=== PATIENT | male | born 1945 | race Caucasian/White ===

== ENCOUNTER 2019-03-06 06:32 | Day surgery (SDC) | payer MEDICARE, OTHER ==
[2019-03-06] MEDS ORDERED: ACETAZOLAMIDE 250 MG PO ONE (06:41)
[2019-03-06] MEDS: PHENYLEPHRINE HCL 10% OPHTHAL SOL ONE ×2 (06:52→07:04)
[2019-03-06] MEDS: TETRACAINE HCL 0.5 % 1 DROP SOL ONE ×3 (06:52→07:59)
[2019-03-06] MEDS: CYCLOPENTOLATE 1% SOL ONE ×2 (06:53→07:05)
[2019-03-06] MEDS: KETOROLAC 0.5% OPTH 60 DROP SOL ONE ×2 (06:53→07:05)
[2019-03-06 06:59] VITALS: PULSE 62
[2019-03-06] MEDS ORDERED: MIDAZOLAM 2 MG/2 ML SOL ONE (07:29)
[2019-03-06] MEDS ORDERED: LIDOCAINE HCL 1% MPF 30 SOL ONE (07:53)
[2019-03-06] MEDS ORDERED: IMPRIMIS ONE (07:53)
[2019-03-06] MEDS ORDERED: BSS 500 ML 500 ML IR ONE (07:53)
[2019-03-06] MEDS ORDERED: POVIDONE IODINE 5% SOL ONE (07:53)
[2019-03-06] MEDS ORDERED: FENTANYL 100MCG/2ML SOL ONE (08:04)
[2019-03-06 08:25] VITALS: BP 106/70; RESP 20; TEMP 96.6
[2019-03-06 08:26] VITALS: O2SAT 94
== END 2019-03-06 08:41 | disposition home or self-care (01) | DRG 125 ==
LOC: SURG 06:32
PROVIDERS: ATTEND Ophthalmology
DX: H25.89 Other age-related cataract (principal); E11.9 Type 2 diabetes mellitus without complications
CPT/HCPCS: J2250; J3010; A9270-GY; J2001